=== PATIENT | male | born 1970 | race Caucasian/White ===

== ENCOUNTER 2023-09-08 12:33 | Emergency (ER) | payer BC ==
[2023-09-08] MEDS: Sodium Chloride 0.9% 1,000 ML IV ONE ×2 (13:40→16:03)
[2023-09-08 13:49] LABS: BASOPHILS ABSOLUTE AUTO 0.03 K/uL (0.00-0.10); BASOPHILS PERCENT AUTO 0.2 % (0.1-1.3); EOSINOPHILS ABSOLUTE AUTO 0.33 K/uL (0.00-0.40); EOSINOPHILS PERCENT AUTO 1.7 % (0.0-5.4); HEMATOCRIT 39.9 % (38.4-49.7); HEMOGLOBIN 14.3 g/dL (12.9-16.9); IMMATURE GRAN ABSOLUTE AUTO 0.26 K/uL (0.00-0.23); IMMATURE GRAN PERCENT AUTO 1.3 % (0.0-0.7); LYMPHOCYTES ABSOLUTE AUTO 0.25 K/uL (0.8-3.3); LYMPHOCYTES PERCENT AUTO 1.3 % (11.4-47.7); MEAN CORPUSCULAR HEMOGLOBIN 31.7 pg (31.6-35.5); MEAN CORPUSCULAR HGB CONC 35.8 g/dL (31.6-35.5); MEAN CORPUSCULAR VOLUME 88.5 fL (81.4-99.0); MONOCYTES ABSOLUTE AUTO 0.54 K/uL (0.20-0.90); MONOCYTES PERCENT AUTO 2.8 % (3.3-12.6); NEUTROPHILS ABSOLUTE AUTO 17.89 K/uL (1.0-7.6); NEUTROPHILS PERCENT AUTO 92.7 % (40.0-78.1); PLATELET COUNT,PLT 133 K/uL (130-375); RED BLOOD CELL COUNT 4.51 M/uL (4.14-5.76); WHITE BLOOD CELL COUNT,WBC 19.3 K/uL (3.2-11.0)
[2023-09-08] MEDS: Vancomycin 2 GM in Sodium Chloride 0.9% 500 ML IV ONE (13:59)
[2023-09-08] MEDS: Sodium Chloride 0.9% 10 ML Syringe FLUSH ONE (14:00)
[2023-09-08 14:14] LABS: LACTIC ACID 1.2 mmol/L (0.4-2.0)
[2023-09-08 14:23] LABS: A/G RATIO 0.7 (1.2-2.2); ALANINE AMINOTRANSFERASE,ALT 29 U/L (12-78); ALBUMIN 2.7 g/dL (3.4-5.0); ALKALINE PHOSPHATASE 94 U/L (46-116); ASPARTATE AMNIOTRANSFERASE,AST 17 U/L (15-37); BILIRUBIN TOTAL 0.8 mg/dL (0.2-1.0); BLOOD UREA NITROGEN,BUN 25 mg/dL (7-18); CALCIUM 8.6 mg/dL (8.5-10.1); CARBON DIOXIDE,CO2 25 mmol/L (21-32); CHLORIDE,CL 97 mmol/L (100-108); CREATININE 1.5 mg/dL (0.8-1.3); EST CRCL DRUG DOSING (CG) 58.26 mL/min; ESTIMATED GFR 56 mL/min (>60); GLUCOSE RANDOM 153 mg/dL (74-106); POTASSIUM,K 3.8 mmol/L (3.6-5.2); PROTEIN TOTAL,TP 6.8 g/dL (6.4-8.2); SODIUM,NA 130 mmol/L (140-148)
[2023-09-08] MEDS: Iopamidol 612 MG/ML 100 ML Bottle IV ONE (14:32)
[2023-09-08] MEDS: Sodium Chloride 0.9% 100 ML IV ONE (14:32)
[2023-09-08 14:33] LABS: ANION GAP 11.8 mmol/L (5.0-14.0); C-REACTIVE PROTEIN 30.45 mg/dL (<0.50)
[2023-09-08 14:49] LABS: APPEARANCE,URINE CLEAR (CLEAR); BILIRUBIN,URINE NEGATIVE (NEGATIVE); COLOR,URINE YELLOW (YELLOW); GLUCOSE,URINE NEGATIVE (NEGATIVE); KETONES,URINE NEGATIVE (NEGATIVE); LEUKOCYTE ESTERASE,URINE NEGATIVE (NEGATIVE); NITRITE,URINE NEGATIVE (NEGATIVE); OCCULT BLOOD,URINE TRACE-INTACT (NEGATIVE); PH,URINE 5.5 (5.0-8.0); PROTEIN,URINE TRACE mg/dL (NEGATIVE); UROBILINOGEN,URINE 0.2 EU/dL (0.2-1.0)
[2023-09-08 14:55] LABS: AMORPHOUS SEDIMENT,URINE FEW; BACTERIA,URINE MODERATE; EPITHELIAL CELLS,URINE RARE; MUCUS,URINE NOT SEEN; RBC,URINE 0-5 (0-5); WBC,URINE 0-5 (0-5)
[2023-09-08] MEDS: HYDROmorphone 1 MG/ML Syringe IVPUSH ONE (16:10)
[2023-09-08] MEDS: Piperacillin/Tazobactam 3.375 GM in Sodium Chloride 0.9% 50 ML IV SCH (17:01)
[2023-09-08] MEDS: Piperacillin/Tazobactam 4.5 GM in Sodium Chloride 0.9% 100 ML IV ONE (17:02)
[2023-09-08] MEDS: Lactated Ringers 1,000 ML IV SCH (17:21)
[2023-09-08 17:53] LABS: ALBUMIN 2.4 g/dL (3.4-5.0); BLOOD UREA NITROGEN,BUN 20 mg/dL (7-18); CALCIUM 8.1 mg/dL (8.5-10.1); CARBON DIOXIDE,CO2 26 mmol/L (21-32); CHLORIDE,CL 100 mmol/L (100-108); CREATININE 1.3 mg/dL (0.8-1.3); EST CRCL DRUG DOSING (CG) 67.23 mL/min; ESTIMATED GFR 67 mL/min (>60); GLUCOSE RANDOM 109 mg/dL (74-106); PHOSPHORUS 1.5 mg/dL (2.5-4.9); POTASSIUM,K 4.2 mmol/L (3.6-5.2); SODIUM,NA 133 mmol/L (140-148)
[2023-09-08 17:54] LABS: ANION GAP 11.2 mmol/L (5.0-14.0)
[2023-09-08] MEDS: Lactated Ringers 600 ML IV SCH (18:16)
== END 2023-09-08 19:04 ==
LOC: JP.ED 12:33 → EDBD 12:33 → JP.ED 19:04
DX: A41.9 Sepsis, unspecified organism (principal); N49.2 Inflammatory disorders of scrotum; I10 Essential (primary) hypertension; F17.210 Nicotine dependence, cigarettes, uncomplicated; Z88.0 Allergy status to penicillin; Z88.8 Allergy status to other drugs, medicaments and biological substances; Z79.899 Other long term (current) drug therapy
CPT/HCPCS: 36415; 74177; 80053; 80069; 81001; 83605; 84145; 85025; 86140; 87040; 96361; 96365; 96366; 96367; 96375; 99285; J1170; J2543; J3370; J3490; J7030; J7040; J7120; Q9967